=== PATIENT | male | born 2000 | race African-American/Black ===

== ENCOUNTER 2018-08-16 18:50 | Emergency (ER) | payer OTHER ==
[2018-08-16] MEDS ORDERED: KETOROLAC TROMETHAMINE 30 MG/1 ML VIAL IM ONE (19:22)
--- NOTE | 2018-08-16 19:22 | PDOC ---
History of Present Illness - General History Source: Patient Exam Limitations: No Limitations - History of Present Illness Initial Comments: 08/16/18 19:42 The patient is a 18 year old male, with no significant past medical history, who presents today complaining of low back pain s/p fall 4 days ago. The patient explains that he was taking his dog for a walk on the leash when the dog pulled him and he landed on his buttocks and fell down 4 marble steps. The patient reports pain with sitting. He took ibuprofen at 12:00pm for the pain. He has been icing the area over the past couple of days. Denies any radiation of pain. Denies numbness and tingling down the lower extremities. Allergies: NKA PCP: Dr. Zamarripa Friend <Stephanie Foley - Last Filed: 08/16/18 19:54> <Kenneth Chang - Last Filed: 08/17/18 06:20> - General Chief Complaint: Back Pain Stated Complaint: LOW BACK PAIN Time Seen by Provider: 08/16/18 19:13 Past History <Stephanie Foley - Last Filed: 08/16/18 19:54> - Past Medical History COPD: No DVT: No - Suicide/Smoking/Psychosocial Hx Smoking History: Never smoked Hx Alcohol Use: No Drug/Substance Use Hx: No Substance Use Type: None <Kenneth Chang - Last Filed: 08/17/18 06:20> - Past Medical History Allergies/Adverse Reactions: Allergies Allergy/AdvReac Type Severity Reaction Status Date / Time No Known Allergies Allergy Verified 08/16/18 19:21 Home Medications: Ambulatory Orders NK [No Known Home Medication] 12/28/17 Review of Systems - Review of Systems Able to Perform ROS?: Yes Comments:: 08/16/18 19:42 A complete review of 10 out of 10 review of systems is taken and is negative apart from what is previously mentioned below and in the HPI. <Stephanie Foley - Last Filed: 08/16/18 19:54> *Physical Exam - Vital Signs Last Vital Signs Temp Pulse Resp BP Pulse Ox 97.5 F L 68 16 125/85 100 08/16/18 19:07 08/16/18 19:07 08/16/18 19:07 08/16/18 19:07 08/16/18 19:07 - Physical Exam Comments: 08/16/18 19:43 Vitals: Triage Vital signs reviewed General Appearance: no acute distress, well nourished well developed Head: Atraumatic Eyes: Pupils equal reactive round, extraocular movement intact Back: +Ttp at the sacrum Extremities: Full range of motion to all extremities, no cyanosis, clubbing, or edema Skin: Warm and dry, no rashes or lesions, no rash, no petechiae Neuro: AOX3 gait normal Psych: Normal mood, normal affect <Stephanie Foley - Last Filed: 08/16/18 19:54> ED Treatment Course - Medications Given in the ED: ED Medications Discontinued Medications Generic Name Dose Route Start Last Admin Trade Name Freq PRN Reason Stop Dose Admin Acetaminophen 650 mg 08/16/18 19:23 08/16/18 19:30 Tylenol - PO 08/16/18 19:24 650 mg ONCE ONE Administration Ketorolac Tromethamine 30 mg 08/16/18 19:22 08/16/18 19:30 Toradol Injection - IM 08/16/18 19:23 30 mg ONCE ONE Administration <Stephanie Foley - Last Filed: 08/16/18 19:54> Medical Decision Making - Medical Decision Making 08/17/18 06:16 EMT status post slip and fall landed on his buttocks complaining of pain over the coccyx reproducible on examination otherwise nonfocal neurologic examination. X-ray demonstrates a fracture to the coccyx nondisplaced Conservative management orthopedic follow-up discussed Findings, the need for follow-up and strict return instructions discussed with patient. <Kenneth Chang - Last Filed: 08/17/18 06:20> *DC/Admit/Observation/Transfer - Attestations Scribe Attestion: 08/16/18 19:43 Documentation prepared by THU Moser, acting as medical record coder for Kenneth Chang MD. <Stephanie Foley - Last Filed: 08/16/18 19:54> - Discharge Dispostion Decision to Admit order: No <Kenneth Chang - Last Filed: 08/17/18 06:20> Diagnosis at time of Disposition: Fractured coccyx Qualifiers: Encounter type: initial encounter Fracture type: closed Qualified Code(s): S32.2XXA - Fracture of coccyx, initial encounter for closed fracture - Discharge Dispostion Disposition: HOME Condition at time of disposition: Good - Referrals Referrals: Dallin Fermin [Primary Care Provider] - Daren Sevilla MD [Staff Physician] - - Patient Instructions Printed Discharge Instructions: Coccyx Fracture Additional Instructions: Ice affected area 20 minutes on 20 minutes off. Alternate Tylenol Motrin as directed on package as needed for pain. Use a support pillow when sitting. Follow-up with orthopedist within 1 week. - Post Discharge Activity Forms/Work/School Notes: Back to Work
[2018-08-16] MEDS ORDERED: ACETAMINOPHEN 325 MG TABLET (FP) PO ONE (19:23)
[2018-08-16 19:27] VITALS: BP 125/85; PULSE 68; TEMP 97.5; BMI 28.1
[2018-08-16] MEDS ORDERED: ACETAMINOPHEN 325 MG TABLET (FP) ONE (19:27)
[2018-08-16] MEDS ORDERED: KETOROLAC TROMETHAMINE 30 MG/1 ML VIAL ONE (19:28)
== END 2018-08-16 20:21 | disposition home or self-care (01) ==
LOC: FER 18:50
PROC: 3E0233Z Introduction of Anti-inflammatory into Muscle, Percutaneous Approach (ICD-10-PCS; principal; 2018-08-16)
DX: S32.2XXA Fracture of coccyx, initial encounter for closed fracture (principal); W10.9XXA Fall (on) (from) unspecified stairs and steps, initial encounter; Y93.89 Activity, other specified; Y92.89 Other specified places as the place of occurrence of the external cause
CPT/HCPCS: 72220-TC-FY; 99282-25

== ENCOUNTER 2018-11-02 19:50 | Emergency (ER) | payer OTHER ==
[2018-11-02 19:57] VITALS: BP 130/81; PULSE 84; BMI 28.1
[2018-11-02] MEDS ORDERED: IBUPROFEN 600 MG TABLET (FP) PO ONE ×2 (20:02→20:09)
--- NOTE | 2018-11-02 20:43 | PDOC ---
Documentation entered by Celo Castorena SCRIBE, acting as scribe for Niesha Maynard MD. Niesha Maynard MD: This documentation has been prepared by the Raffaele vargas Brenda, SCRIBE, under my direction and personally reviewed by me in its entirety. I confirm that the documentation accurately reflects all work , treatment, procedures, and medical decision making performed by me. History of Present Illness - General Chief Complaint: Sore Throat Stated Complaint: SORE THROAT, BODY ACHES Time Seen by Provider: 11/02/18 19:51 History Source: Patient Exam Limitations: No Limitations - History of Present Illness Initial Comments: 11/02/18 20:37 The patient is a 18 year old male, with no significant PMH who presents to the emergency department with 1 week of flu symptoms. The patient reports having a sore throat for the past week. He also associates having frequent cold sweats and full body aches for the past 7 days, accompanied by a headache. He admits taking dayquil and nyquil everyday, to no avail. The patient denies cough, chest pain, shortness of breath, headache and dizziness. Denies nausea, vomiting, diarrhea and constipation. Allergies: As per nursing notes Past medical history: no significant history Past surgical history: no significant history Social history: No reported Family History: no pertinent history Medications: As reviewed PCP: Dr. Ariel Fermin General: +Chills. , no weakness, no weight loss HEENT: +Sore throat. No change in vision. No ear pain CardioVascular: No chest pain or shortness of breath Respiratory:No cough, or wheezing. Gastrointestinal: no nausea, vomiting, diarrhea or constipation, No rectal bleeding Genitourinary: No dysuria, hematuria, or frequency Musculoskeletal: +Full body aches. No joint or muscle swelling Neurologic: + headache, vertigo, dizziness or loss of consciousness Psychiatric: nor depression Skin: No rashes or easy bruising Endocrine: no increased thirst or abnormal weight change Allergic: no skin or latex allergy All other systems reviewed and normal GENERAL: The patient is awake, alert, and fully oriented, in no acute distress. HEAD: Normal with no signs of trauma. EYES: Pupils equal, round and reactive to light, extraocular movements intact, sclera anicteric, conjunctiva clear. THROAT: +Mild erythema of posterior oropharynx +Slightly enlarged tonsils with small amount of exudate + bilateral submandibular lymphadenopathy EXTREMITIES: Normal range of motion, no edema. NEUROLOGICAL: Normal speech, normal gait. PSYCH: Normal mood, normal affect. SKIN: Warm, Dry, normal turgor, no rashes or lesions noted. 11/02/18 20:43 Assessment and plan: This is 18-year-old male who comes in complaining of sore throat and questionable fevers. Patient did have a small amount of exudative pharyngitis and some lymphadenopathy however his rapid strep was negative. Patient discharged and will follow-up with his primary care doctor. Past History - Past Medical History Allergies/Adverse Reactions: Allergies Allergy/AdvReac Type Severity Reaction Status Date / Time No Known Allergies Allergy Verified 11/02/18 19:51 Home Medications: Ambulatory Orders NK [No Known Home Medication] 12/28/17 COPD: No DVT: No - Immunization History Immunization Up to Date: Yes - Suicide/Smoking/Psychosocial Hx Smoking History: Never smoked Hx Alcohol Use: No Drug/Substance Use Hx: No Substance Use Type: None *Physical Exam - Vital Signs Last Vital Signs Temp Pulse Resp BP Pulse Ox 100.7 F H 84 18 130/81 96 11/02/18 19:50 11/02/18 19:50 11/02/18 19:50 11/02/18 19:50 11/02/18 19:50 ED Treatment Course - Medications Given in the ED: ED Medications Discontinued Medications Generic Name Dose Route Start Last Admin Trade Name Freq PRN Reason Stop Dose Admin Ibuprofen 600 mg 11/02/18 20:02 11/02/18 20:11 Motrin - PO 11/02/18 20:03 600 mg ONCE ONE Administration *DC/Admit/Observation/Transfer Diagnosis at time of Disposition: Viral pharyngitis - Discharge Dispostion Disposition: HOME Condition at time of disposition: Stable Decision to Admit order: No - Referrals Referrals: FriendDallin [Primary Care Provider] - - Patient Instructions Additional Instructions: For the pain and fever take ibuprofen 3 tablets 3 times a day or you can take Tylenol 2 tablets 4 times a day. Your strep screen was negative so this most likely is viral. Follow-up with your primary care doctor if not improved by the end of the week. Return to the emergency department immediately with ANY new, persistent or worsening symptoms. Continue any medications as previously prescribed by your physician. You should follow up with your primary doctor as soon as possible regarding today's emergency department visit. . Please make sure your doctor reviews the results of your emergency evaluation. Thank you for coming to the Emergency Department today for your care. It was a pleasure to see you today. Please note that your evaluation is INCOMPLETE until you follow-up with your doctor. - Post Discharge Activity
[2018-11-02 20:52] VITALS: TEMP 100.6
== END 2018-11-02 20:53 | disposition home or self-care (01) ==
LOC: FER 19:50
DX: J02.8 Acute pharyngitis due to other specified organisms (principal)
CPT/HCPCS: 87070; 87880; 99283-25